=== PATIENT | male | born 1980 | race African-American/Black ===

== ENCOUNTER 2019-12-04 15:33 | Emergency (ER) | payer BC, MEDICARE ==
[~2019-12-04] VITALS: Ht 172.7 cm; Wt 74.0 kg
[~2019-12-04 15:33] MED LIST: IBUP-1007 PO; ONDA4TAB10 SL
[2019-12-04 15:44] VITALS: BP 115/90
--- NOTE | 2019-12-04 16:57 | RAD ---
EXAM: Chest, 2 views. HISTORY: Chest pain. Lung cancer. COMPARISON: None. FINDINGS: 2 views of the chest are obtained. There is suspected right middle lobe pleural parenchymal scarring. There is no infiltration, pleural effusion or pneumothorax. The heart is normal in size. IMPRESSION: No acute pulmonary finding. Electronically signed by: Indu Light MD (12/04/2019 4:54 PM) [id number]
[2019-12-04 17:11] LABS: BILIRUBIN,URINE SMALL (NEG); CLARITY,URINE CLEAR; NITRITE,URINE NEGATIVE (NEG); PH,URINE 7.5 (<5.0-8.0); PROTEIN,URINE 30 mg/dL (NEG-TRACE)
[2019-12-04 17:16] LABS: BARBITURATES NEG (NEG); BENZODIAZEPINES NEG (NEG); CANNABINOIDS NEG (NEG); COCAINE POS (NEG); METHADONE NEG (NEG); OPIATES NEG (NEG); PHENCYCLIDINE NEG (NEG)
[2019-12-04 17:18] LABS: BACTERIA,URINE FEW /HPF (0-FEW); COLOR,URINE DK YELLOW; SQUAMOUS EPITHELIAL CELL,UR MOD /LPF
[2019-12-04 17:20] LABS: RBC,URINE 0 /HPF (0-2)
--- NOTE | 2019-12-04 17:25 | PHYS DOC ---
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 He states that he has lung cancer that had spread to his lower back. He states that he is scheduled to go to [place] to a cancer facility tomorrow morning. They had stated for him to come to the emergency room to get pain medication for travel. Patient rates his pain a 6 out of 10. He is alert and oriented and ambulatory with steady gait. Review of Systems: Review of Systems: Musculoskeletal: Lumbar back pain or joint pain. [] Heart Score: Risk Factors: Risk Factors: DM, Current or recent (<one month) smoker, HTN, HLP, family history of CAD, obesity. Risk Scores: Score 0 - 3: 2.5% MACE over next 6 weeks - Discharge Home Score 4 - 6: 20.3% MACE over next 6 weeks - Admit for Clinical Observation Score 7 - 10: 72.7% MACE over next 6 weeks - Early Invasive Strategies Allergies: Allergies: Allergies Coded Allergies Type Severity Reaction Last Updated Verified No Known Drug Allergies 08/08/14 No Physical Exam: PE: Constitutional: Well developed, well nourished, no acute distress, non-toxic appearance. [] HENT: Normocephalic, atraumatic, bilateral external ears normal, oropharynx moist, no oral exudates, nose normal. [] Eyes: PERRLA, EOMI, conjunctiva normal, no discharge. [] Neck: Normal range of motion, no tenderness, supple, no stridor. [] Cardiovascular:Heart rate regular rhythm, no murmur [] Lungs & Thorax: Bilateral breath sounds clear to auscultation [] Abdomen: Bowel sounds normal, soft, no tenderness, no masses, no pulsatile masses. [] Skin: Warm, dry, no erythema, no rash. [] Back: No tenderness, no CVA tenderness. [] Extremities: No tenderness, no cyanosis, no clubbing, ROM intact, no edema. [] Neurologic: Alert and oriented X 3, normal motor function, normal sensory function, no focal deficits noted. [] Psychologic: Affect normal, judgement normal, mood normal. Normal physical exam [] Current Patient Data: Labs: Laboratory Tests Test 12/04/19 16:46 Urine Collection Type Unknown Urine Color Dk yellow Urine Clarity Clear Urine pH 7.5 (<5.0-8.0) Urine Specific [place] 1.020 (1.000-1.030) Urine Protein 30 mg/dL (NEG-TRACE) Urine Glucose (UA) Negative mg/dL (NEG) Urine Ketones (Stick) Trace mg/dL (NEG) Urine Blood Negative (NEG) Urine Nitrite Negative (NEG) Urine Bilirubin Small (NEG) Urine Urobilinogen Dipstick 1.0 mg/dL (0.2 mg/dL) Urine Leukocyte Esterase Trace (NEG) Urine RBC 0 /HPF (0-2) Urine WBC 1-4 /HPF (0-4) Urine Squamous Epithelial Cells Mod /LPF Urine Bacteria Few /HPF (0-FEW) Urine Mucus Marked /LPF Vital Signs: Vital Signs Date Time Temp Pulse Resp B/P (MAP) Pulse Ox O2 Delivery O2 Flow Rate FiO2 12/04/19 15:44 99.8 40 16 115/90 (98) 100 Room Air 99.8 EKG: EKG: [] Radiology/Procedures: Radiology/Procedures: [] Impression: [facility] [address] [place], [place] [id number] IMAGING REPORT Signed PATIENT: NINFA ESPINOZA ACCOUNT: [id number] : 1980 LOCATION: ER AGE: 39 SEX: M EXAM STATUS: REG ER ORD. PHYSICIAN: VIOLA SANTOYO APRN REASON: LEFT CHEST AND SIDE PAIN, HX LUNG CA PROCEDURE: CHEST PA & LATERAL EXAM: Chest, 2 views. HISTORY: Chest pain. Lung cancer. COMPARISON: None. FINDINGS: 2 views of the chest are obtained. There is suspected right middle lobe pleural parenchymal scarring. There is no infiltration, pleural effusion or pneumothorax. The heart is normal in size. IMPRESSION: No acute pulmonary finding. Electronically signed by: Indu Light MD (12/04/2019 4:54 PM) [id number] DICTATED and SIGNED BY: INDU LIGHT MD DATE: 12/04/19 1654 Course & Med Decision Making: Course & Med Decision Making Pertinent Labs and Imaging studies reviewed. (See chart for details) Amatory with a steady gait. Skin pink warm and dry. Vital signs within normal limits. No tenderness to the lower spine. Patient points to his mid lumbar spine of where his pain is. He states is an aching throbbing pain. States he has been out of his oxycodone that he was on 10 mg every 4 hours. Patient has a history of IV heroin and meth abuse and also hypertension. Patient's UDS today came back positive for cocaine. Patient states the reason he did cocaine was because he had no pain medications. Patient is told that he is positive for cocaine I will only give him 1-2 pain pills. Patient's chest x-ray today shows no acute findings. Urinalysis shows no infection. Patient follow-up with cancer facility in [place] in the morning. [] Augie Disclaimer: Augie Disclaimer: This electronic medical record was generated, in whole or in part, using a voice recognition dictation system. Departure Departure Impression: Primary Impression: Chronic back pain Qualified Codes: M54.5 - Low back pain; G89.29 - Other chronic pain Additional Impression: Cocaine abuse Disposition: 01 HOME, SELF-CARE Condition: STABLE Referrals: UNKNOWN PCP NAME (PCP) Patient Instructions: Drug Abuse and Addiction-SportsMed, Medication Refill, Emergency Department Additional Instructions: Follow-up with the cancer center in [place] tomorrow. Do not use illegal drugs with the pain medication given you. Scripts Hydrocodone/Apap 5-325 (NORCO 5-325 TABLET) 1 Each Tablet 1 TAB PO PRN Q6HRS PRN for PAIN, #2 TAB 0 Refills Prov: VIOLA SANTOYO APRN 12/04/19 Justicifation of Admission Dx: Justifications for Admission: Justification of Admission Dx: N/A VIOLA SANTOYO APRN Dec 04, 2019 17:25
[2019-12-04 17:30] LABS: AMPHETAMINE/METHAMPHETAMINE NEG (NEG)
[2019-12-04] MEDS ORDERED: HYDR-3164 PO (17:55)
== END 2019-12-04 17:58 | disposition home or self-care (01) ==
LOC: ER 15:33
DX: M54.5 Low back pain (principal); G89.29 Other chronic pain; F14.10 Cocaine abuse, uncomplicated; I10 Essential (primary) hypertension; Z87.891 Personal history of nicotine dependence
CPT/HCPCS: 71046; 80307; 81001; 87086; 99284